=== PATIENT | female | born 1955 | race Caucasian/White ===

== ENCOUNTER 2017-11-08 00:57 | Emergency (ER) | payer SELFPAY ==
[~2017-11-08] VITALS: Ht 152.4 cm; Wt 56.8 kg
[~2017-11-08 00:57] MED LIST: ASPI81 PO; LEVO750T21 PO; LORA10TA7 PO; MOME17N NASAL
[2017-11-08] MEDS ORDERED: ATOR20TA86 PO (01:12)
[2017-11-08 05:15] VITALS: BP 124/76
== END 2017-11-08 05:18 | disposition home or self-care (01) ==
LOC: EMS 00:58
DX: S50.12XA Contusion of left forearm, initial encounter (principal); S50.862A Insect bite (nonvenomous) of left forearm, initial encounter; E78.00 Pure hypercholesterolemia, unspecified; Z79.82 Long term (current) use of aspirin; W57.XXXA Bitten or stung by nonvenomous insect and other nonvenomous arthropods, initial encounter; Y93.E9 Activity, other interior property and clothing maintenance; Y92.096 Garden or yard of other non-institutional residence as the place of occurrence of the external cause; Y99.8 Other external cause status
CPT/HCPCS: 99283